=== PATIENT | female | born 1985 | race African-American/Black ===

== ENCOUNTER 2017-07-16 06:30 | Emergency (ER) | payer SELFPAY ==
[~2017-07-16] VITALS: Ht 167.6 cm; Wt 88.0 kg
[~2017-07-16 06:30] MED LIST: MACR100C2 PO; NORE1CAP PO; TRI-TAB PO
[2017-07-16 06:31] VITALS: BP 140/74; PULSE 106; RESP 16; TEMP 98.2; O2SAT 99
[2017-07-16 06:52] VITALS: BP 132/77; PULSE 87; RESP 18; O2SAT 100
[2017-07-16] MEDS ORDERED: BACT800T5 PO (07:05)
--- NOTE | 2017-07-16 07:11 | PD ---
HPI . Right leg lesion Chief Complaint: Skin Problem Time Seen by Provider: 06:57 Travel History International Travel<30 days: No Contact w/Intl Traveler<30days: No Traveled to known affect area: No History of Present Illness HPI Patient presents with the chief complaint of a lesion to her right leg. Onset was 3 days ago. It started as a pustule. She states that she drained the pustule using a sterilized needle. She states that a lot of pus draining from the area. Since then, she has continued to have drainage from the area as well as pain. She rates her pain 9/10 with no modifying factors. She has been treating the wound with triple antibiotic ointment. She denies any associated fever. She states that she is not diabetic. PFSH Past Medical History Tetanus Vaccination: < 5 Years Influenza Vaccination: No ?: Not LMP: 06/30/2017 Past Surgical History Body Medical Devices: screws in left foot Social History Alcohol Use: Yes (occasionally) Tobacco Use: No Substance Use: No Allergies-Medications (Allergen,Severity, Reaction): Coded Allergies: No Known Allergies (Unverified Adverse Reaction, Unknown, 07/16/17) Reported Meds & Prescriptions Reported Meds & Active Scripts Active Bactrim DS (Sulfamethoxazole-Trimethoprim) 800-160 Mg Tab 1 Tab PO BID Review of Systems Except as stated in HPI: all other systems reviewed are Neg General / Constitutional: No: Fever, Chills Skin: Positive Lesions Physical Exam Narrative GENERAL: Awake and alert and in no acute distress. SKIN: Warm and dry. She has a lesion on her right anterior ch which is about the size of a dime. The overlying skin is necrotic appearing. There is a scant amount of purulent drainage coming from the area. There is no palpable pus pocket. The surrounding skin is not red or hot. HEAD: Normocephalic/atraumatic. EYES: Pupils are equal. Extraocular movements are intact. NECK: Normal range of motion. CARDIOVASCULAR: Regular rate and rhythm. RESPIRATORY: Nonlabored respirations. MUSCULOSKELETAL: Atraumatic. NEUROLOGICAL: Nonfocal. PSYCHIATRIC: Appropriate mood and affect. Data Data Last Documented VS Vital Signs Date Time Temp Pulse Resp B/P (MAP) Pulse Ox O2 Delivery O2 Flow Rate FiO2 07/16/17 06:52 87 18 132/77 (95) 100 Room Air 07/16/17 06:31 98.2 Orders Orders Ed Discharge Order (07/16/17 07:07) MDM Medical Decision Making Medical Screen Exam Complete: Yes Emergency Medical Condition: Yes Differential Diagnosis My differential diagnosis closed but is not limited to abscess, cyst, lipoma Narrative Course This patient presents with an abscess on her right chin. It was adequately drained prior to presentation. I have asked her to continue local wound care. I have added Bactrim. Diagnosis Primary Impression: Abscess of right leg Referrals: [facility] Patient Instructions: General Instructions Departure Forms: Tests/Procedures Additional Instructions: Gently wash the wound twice daily with warm soap and water. Then apply antibiotic ointment. Scripts Sulfamethoxazole-Trimethoprim (Bactrim DS) 800-160 Mg Tab 1 TAB PO BID for Infection, #20 TAB 0 Refills Prov: Katia Luz MD 07/16/17 Disposition: 01 DISCHARGE HOME Condition: Stable Katia Luz MD Jul 16, 2017 07:11
== END 2017-07-16 07:44 | disposition home or self-care (01) ==
LOC: NEPE 06:30
DX: L02.415 Cutaneous abscess of right lower limb (principal)
CPT/HCPCS: 99283

== ENCOUNTER 2017-12-08 14:01 | Emergency (ER) | payer SELFPAY ==
[~2017-12-08] VITALS: Ht 167.6 cm; Wt 88.0 kg
[~2017-12-08 14:01] MED LIST changes: +BACT800T5 PO; -MACR100C2 PO; +METR-1 PO; -NORE1CAP PO; -TRI-TAB PO
[2017-12-08 14:06] VITALS: BP 148/87; PULSE 86; RESP 18; TEMP 97.8; O2SAT 100
[2017-12-08 14:36] LABS: BILIRUBIN, URINE NEG (NEG); BLOOD, URINE MOD (NEG); GLUCOSE,URINE NEG (NEG); KETONE, URINE NEG (NEG); NITRITE,URINE NEG (NEG); PH, URINE 6.5 (5.0-8.5); SQUAMOUS EPITHELIAL CELL URINE 2 /hpf (0-5); URINE COLOR LIGHT-YELLOW (YELLW/STRAW); URINE LEUKOCYTE ESTERASE SMALL (NEG)
--- NOTE | 2017-12-08 15:24 | PD ---
HPI Chief Complaint: Headache Time Seen by Provider: 15:24 Travel History International Travel<30 days: No Contact w/Intl Traveler<30days: No Traveled to known affect area: No History of Present Illness HPI 32-year-old female came to the emergency room with history of headache has been going on for past 3 days but patient has not taken anything for the headache. However she says her main reason of coming to the emergency room is because she has noticed some vaginal discharge that has also been going on for past 3-4 days. It looks a little bloody. She is concerned about it. There was a UA and urine done out in the waiting room. Urine was negative. Patient claims to have had last unprotected sex in July. No history of pelvic pain. No history of dysuria or hematuria. [facility] Past Medical History Narrative Medical List of her past medical, surgical, social and family history is reviewed from the nursing note. ?: Not LMP: 11/27/17 Past Surgical History Body Medical Devices: screws in left foot Social History Alcohol Use: Yes (occasionally) Tobacco Use: No Substance Use: No Allergies-Medications (Allergen,Severity, Reaction): Coded Allergies: No Known Allergies (Unverified Adverse Reaction, Unknown, 12/08/17) Comments No known drug allergies. Reported Meds & Prescriptions Reported Meds & Active Scripts Active No Active Prescriptions or Reported Medications Narrative Medication List of her home medications reviewed from the nursing note Review of Systems Except as stated in HPI: all other systems reviewed are Neg Genitourinary: Positive: Discharge Physical Exam Narrative GENERAL: Awake, alert, no obvious distress SKIN: Focused skin assessment warm/dry. HEAD: Atraumatic. Normocephalic. EYES: Pupils equal and round. No scleral icterus. No injection or drainage. ENT: No nasal bleeding or discharge. Mucous membranes pink and moist. NECK: Trachea midline. No JVD. CARDIOVASCULAR: Regular rate and rhythm. No murmur appreciated. RESPIRATORY: No accessory muscle use. Clear to auscultation. Breath sounds equal bilaterally. GASTROINTESTINAL: Abdomen soft, non-tender, nondistended. Hepatic and splenic margins not palpable. CUT AND COVER LINE WORKER: External inspection was within normal limit. Upon speculum insertion blood in the vaginal vault was noticed. This looks like menstrual blood. MUSCULOSKELETAL: No obvious deformities. No clubbing. No cyanosis. No edema. NEUROLOGICAL: Awake and alert. No obvious cranial nerve deficits. Motor grossly within normal limits. Normal speech. PSYCHIATRIC: Appropriate mood and affect; insight and judgment normal. Data Data Last Documented VS Vital Signs Date Time Temp Pulse Resp B/P (MAP) Pulse Ox O2 Delivery O2 Flow Rate FiO2 12/08/17 15:27 Room Air 12/08/17 14:06 97.8 86 18 148/87 (107) 100 Orders Orders Urinalysis - C+S If Indicated (12/08/17 14:08) Ed Urine Pregnancytest Poc (12/08/17 14:08) Gc And Chlamydia Pcr (12/08/17 15:40) Wet Prep Profile (12/08/17 15:40) Acetaminophen (Tylenol) (12/08/17 15:45) Ed Discharge Order (12/08/17 16:58) Labs Laboratory Tests Test 12/08/17 14:15 12/08/17 16:00 Urine Color LIGHT-YELLOW Urine Turbidity CLEAR Urine pH 6.5 Urine Specific [place] 1.012 Urine Protein NEG mg/dL Urine Glucose (UA) NEG mg/dL Urine Ketones NEG mg/dL Urine Occult Blood MOD Urine Nitrite NEG Urine Bilirubin NEG Urine Urobilinogen LESS THAN 2.0 MG/DL Urine Leukocyte Esterase SMALL Urine RBC 6 /hpf Urine WBC 1 /hpf Urine Squamous Epithelial Cells 2 /hpf Microscopic Urinalysis Comment CULT NOT INDICATED Clue Cells (Wet Prep) NONE SEEN Vaginal Trichomonas (Wet Prep) NONE SEEN Vaginal Yeast (Wet Prep) NONE SEEN MDM Medical Decision Making Medical Screen Exam Complete: Yes Emergency Medical Condition: Yes Medical Record Reviewed: Yes Differential Diagnosis STD, headache NOS, migraine Narrative Course 3:50 PM awaiting to do a pelvic exam once the nurse has with the patient on pelvic exam position. She is getting Tylenol for the headache. Procedures EKG Prior to Arrival: No Diagnosis Primary Impression: Dysfunctional uterine bleeding Referrals: Ashely Dumont MD 1 week Additional Instructions: Follow-up with the CUT AND COVER LINE WORKER who is name and number been provided to you on this discharge paper. Call the office to make an appointment. Take the medication prescription as directed. Med/Other Pt SpecificInfo: Prescription(s) given Scripts Norethindrone-Ethinyl Estradiol (Nortrel 135) 1-35 Mg-Mcg Tab 1 TAB PO DAILY for Control, #1 PACK 0 Refills Prov: Renate,Shravanti R. MD 12/08/17 Disposition: 01 DISCHARGE HOME Condition: Stable Kerry Dewitt MD December 08, 2017 15:24
[2017-12-08] MEDS ORDERED: ACETAMINOPHEN 325 MG TAB PO ONE (15:45)
[2017-12-08] MEDS ORDERED: NORT1TAB PO (17:00)
[2017-12-08 17:05] VITALS: BP 120/75
== END 2017-12-08 17:10 | disposition home or self-care (01) ==
LOC: NEPD 14:01
DX: N93.8 Other specified abnormal uterine and vaginal bleeding (principal)
CPT/HCPCS: 81001; 84703; 87210; 87491; 87591; 99284

== ENCOUNTER 2018-01-01 06:08 | Emergency (ER) | payer SELFPAY ==
[~2018-01-01 06:08] MED LIST changes: -BACT800T5 PO; -METR-1 PO; +NORT1TAB PO
[2018-01-01 06:10] VITALS: BP 145/84; PULSE 65; RESP 15; TEMP 98.2; O2SAT 100
--- NOTE | 2018-01-01 06:54 | PD ---
HPI Chief Complaint: Complaint Time Seen by Provider: 06:53 Travel History International Travel<30 days: No Contact w/Intl Traveler<30days: No Traveled to known affect area: No History of Present Illness HPI 32-year-old female presents to the emergency department for complaint of 2 days of vaginal discharge. Patient reports she has a history of bacterial vaginosis and feels that the symptoms are similar. Patient states last period was December 26 - December 30 and normal for her. Patient uses pads without tampon use. Patient has had some dysuria and pruritus. Patient reports she has had symptoms like this before and feels that she needs a dose of antibiotic which typically resolves her symptoms for 6-9 months. Patient recently underwent Pap smear that was normal within this year. Patient was just seen approximate month ago for same symptoms and was told that it was related to her. The patient states that she has had irregular menses before but this is not significant irregular bleeding and that when she has spotting like this is related to some type of vaginal infection. Patient is upset because she was here for the same thing one month ago and did not get antibiotic reportedly. PFSH Past Medical History Narrative Medical Immunizations current vaginosis orthopedic surgery occasional alcohol use nursing notes reviewed Diminished Hearing: No Immunizations Current: Yes Tetanus Vaccination: Unknown Influenza Vaccination: No ?: Not LMP: 6/3 Past Surgical History Body Medical Devices: screws in left foot Social History Alcohol Use: Yes (occasionally) Tobacco Use: No Substance Use: No Allergies-Medications (Allergen,Severity, Reaction): Coded Allergies: No Known Allergies (Unverified Adverse Reaction, Unknown, 01/01/18) Reported Meds & Prescriptions Reported Meds & Active Scripts Active Nortrel 1/35 (Norethindrone-Ethinyl Estradiol) 1-35 Mg-Mcg Tab 1 Tab PO DAILY Review of Systems Except as stated in HPI: all other systems reviewed are Neg General / Constitutional: No: Fever HENT: No: Congestion Cardiovascular: No: Chest Pain or Discomfort Respiratory: No: Shortness of Breath Gastrointestinal: No: Nausea, Vomiting, Abdominal Pain Genitourinary: Positive: Dysuria, Discharge, No: Flank Pain Musculoskeletal: No: Myalgias, Arthralgias Skin: Positive Itching, No Rash Psychiatric: No: Anxiety Hematologic/Lymphatic: No: Lymph Node Enlargement Physical Exam Narrative GENERAL: Well-developed well-nourished female no acute distress no respiratory distress SKIN: Warm and dry. HEAD: Normocephalic. EYES: No scleral icterus. No injection or drainage. NECK: Supple, trachea midline. No JVD or lymphadenopathy. CARDIOVASCULAR: Regular rate and rhythm without murmurs, gallops, or rubs. RESPIRATORY: Breath sounds equal bilaterally. No accessory muscle use. GASTROINTESTINAL: Abdomen soft, non-tender, nondistended. Pelvic exam: Normal external exam no redness induration; speculum exam yellow pale bell mucus discharge cervical loss closed no gross blood no clots no tissue; bimanual exam no cervical motion tenderness no adnexal mass or tenderness no uterine enlargement. MUSCULOSKELETAL: No cyanosis, or edema. BACK: Nontender without obvious deformity. No CVA tenderness. Data Data Last Documented VS Vital Signs Date Time Temp Pulse Resp B/P (MAP) Pulse Ox O2 Delivery O2 Flow Rate FiO2 01/01/18 06:10 98.2 65 15 145/84 (104) 100 Orders Orders Gc And Chlamydia Pcr (01/01/18 06:53) Wet Prep Profile (01/01/18 06:53) Ua Includes Microscopic (01/01/18 06:53) Ed Urine Pregnancytest Poc (01/01/18 06:53) Metronidazole (Flagyl) (01/01/18 07:15) Labs Laboratory Tests Test 01/01/18 07:00 [facility] Medical Decision Making Medical Screen Exam Complete: Yes Emergency Medical Condition: Yes Medical Record Reviewed: Yes Interpretation(s) POC hCG: Negative Differential Diagnosis Bacterial vaginosis Gardnerella STI UTI Narrative Course Specimens collected and sent for resulting [id number] hCG negative Patient with reported known recurrent annual vaginosis returns to the emergency department for ongoing complaint noted 1 month ago. Patient has benign appearing pelvic exam 2 days post completing her menses. Will write patient for one time dose of Flagyl and she states this has been effective for her symptomatically in the past even if her exams have been negative by culture. Diagnosis Primary Impression: Vaginosis Referrals: Time Study Analyst call for appointment Patient Instructions: General Instructions Additional Instructions: Follow-up with your segment producer Return to the emergency department for any concerns or change in condition increase fluid hydration Med/Other Pt SpecificInfo: No Change to Meds Disposition: 01 DISCHARGE HOME Condition: Stable Mariposa Chao MD Jan 01, 2018 06:54
[2018-01-01] MEDS ORDERED: metroNIDAZOLE 500 MG TAB PO ONE (07:15)
[2018-01-01 07:37] LABS: BACTERIA, URINE RARE /hpf; BILIRUBIN, URINE NEG (NEG); BLOOD, URINE TRACE (NEG); GLUCOSE,URINE NEG (NEG); KETONE, URINE NEG (NEG); MUCUS URINE FEW /lpf (OCC); NITRITE,URINE NEG (NEG); PH, URINE 5.5 (5.0-8.5); SQUAMOUS EPITHELIAL CELL URINE 1 /hpf (0-5); URINE COLOR YELLOW (YELLW/STRAW); URINE LEUKOCYTE ESTERASE MOD (NEG)
[2018-01-01] MEDS ORDERED: MACR100C2 PO (08:36)
--- NOTE | 2018-01-01 08:38 | PD ---
Physical Exam Date Seen by Provider: Jan 01, 2018 Time Seen by Provider: 07:00 Narrative Patient was signed out to me by Dr. Mariposa Chao change of shift. Please see her H&P for further details. We are waiting wet prep and urinalysis. Wet prep shows no evidence of acute findings. Urinalysis shows evidence of a UTI. GC and chlamydia are pending at this time. The patient was medicated with [address] Chao prior to sign out. Data Data Last Documented VS Vital Signs Date Time Temp Pulse Resp B/P (MAP) Pulse Ox O2 Delivery O2 Flow Rate FiO2 01/01/18 06:10 98.2 65 15 145/84 (104) 100 Orders Orders Gc And Chlamydia Pcr (01/01/18 06:53) Wet Prep Profile (01/01/18 06:53) Ua Includes Microscopic (01/01/18 06:53) Ed Urine Pregnancytest Poc (01/01/18 06:53) Metronidazole (Flagyl) (01/01/18 07:15) Urine Culture (01/01/18 08:35) Labs Laboratory Tests Test 01/01/18 07:00 Urine Color YELLOW Urine Turbidity CLEAR Urine pH 5.5 Urine Specific [place] 1.019 Urine Protein NEG mg/dL Urine Glucose (UA) NEG mg/dL Urine Ketones NEG mg/dL Urine Occult Blood TRACE Urine Nitrite NEG Urine Bilirubin NEG Urine Urobilinogen LESS THAN 2.0 MG/DL Urine Leukocyte Esterase MOD Urine RBC 1 /hpf Urine WBC 11 /hpf Urine Squamous Epithelial Cells 1 /hpf Urine Bacteria RARE /hpf Urine Mucus FEW /lpf Clue Cells (Wet Prep) NONE SEEN Vaginal Trichomonas (Wet Prep) NONE SEEN Vaginal Yeast (Wet Prep) NONE SEEN MDM Medical Record Reviewed: Yes Supervised Visit with JENNIFER: No Narrative Course 32-year-old female presents with vaginal discharge. Patient was treated with [address] Chao for vaginosis. Patient also has a UTI. She will be discharged with a prescription for Macrobid. We will call her if her GC or chlamydia cultures come back positive. She had recently been treated with Rocephin and Zithromax. Diagnosis Primary Impression: Vaginosis Additional Impression: Cystitis Referrals: Horizontal Boring Mill Set Up Operator call for appointment Patient Instructions: General Instructions Additional Instruction: Follow-up with your electrical cad technician Return to the emergency department for any concerns or change in condition increase fluid hydration Med/Other Pt SpecificInfo: Prescription(s) given Scripts Nitrofurantoin Monohydrate Macrocrystals (Macrobid) 100 Mg Capsule 100 MG PO BID for Infection for 7 Days, #14 CAP 0 Refills Prov: Shaquille Carvajal MD 01/01/18 Disposition: 01 DISCHARGE HOME Condition: Stable Shaquille Carvajal MD Jan 01, 2018 08:38
== END 2018-01-01 09:10 | disposition home or self-care (01) ==
LOC: NEPC 06:08
DX: N76.0 Acute vaginitis (principal); N30.90 Cystitis, unspecified without hematuria
CPT/HCPCS: 81001; 84703; 87086; 87210; 87491; 87591; 99284